=== PATIENT | male | born 1955 | race Caucasian/White ===

== ENCOUNTER 2017-01-21 20:11 | Emergency (ER) | payer MEDICARE ==
[~2017-01-21 20:11] MED LIST: BENAZEPRIL HCL40 MG PO; CADUET 5 MG/201 TAB PO; COREG3.125 MG PO; EFFEXOR XR PO; FLEXERIL PO; FLOMAX0.4 M1 PO; FLUOXETINE HCL40 M1 PO; FOLIC ACID1 MG PO; NORVASC10 MG PO; ONE TABLET DAIL1 TA2 PO; OXYCONTIN PO; ROBAXIN500 MG PO; THIAMINE HCL100 M1 PO
== END 2017-01-21 20:30 | disposition home or self-care (01) ==
LOC: CED 20:11
DX: T78.3XXA Angioneurotic edema, initial encounter (principal); S00.03XA Contusion of scalp, initial encounter; I10 Essential (primary) hypertension; Z79.899 Other long term (current) drug therapy; W01.198A Fall on same level from slipping, tripping and stumbling with subsequent striking against other object, initial encounter
CPT/HCPCS: 36415; 96374; 96375; 99284; J1200; J2930